=== PATIENT | male | born 1960 ===

== ENCOUNTER 2025-02-25 11:31 | Emergency (ER) | payer OTHER, SELFPAY ==
[2025-02-25] VITALS (9 sets, daily range): BP systolic 120; BP diastolic 78; PULSE 85–96; RESP 18; TEMP 37.2–38.1; O2SAT 92–98; BMI 33.1
--- NOTE | 2025-02-25 12:06 | ED_ITS ---
HPI - General Adult General Date Seen: 02/25/25 Chief complaint: Dizziness/Vertigo Stated complaint: Dizziness Time Seen by Provider: 02/25/25 11:54 History of Present Illness HPI narrative: Patient is a 64-year-old male who says he is generally pretty healthy but for the past several years has been having difficulties with somewhat abrupt onset weakness in his arms and legs and fatigue/mental fuzziness/sleepiness particularly when he works in the heat. He said he used to be able to manage it by taking frequent breaks but it seems to be getting worse to the point that he can not work in the heat at all. He has a doctor at [facility] and says that he has talked to his doctor about this it sounds like multiple times, he had an MRI recently but does not know what the results are and he has a stress test in the near future. He had a stress test for these symptoms a few years ago which was unremarkable. He came in today because he said he just wanted to get his lab work checked while he was more symptomatic. 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 No atypical symptoms today. No focal weakness, no chest pain. Related Data Home Medications ?Medication ?Instructions ?Recorded ?Confirmed acyclovir 400 mg tablet 400 mg PO DAILY PRN 02/25/25 02/25/25 hydroxurea 02/25/25 Allergies Allergy/AdvReac Type Severity Reaction Status Date / Time No Known Drug Allergies Allergy Verified 02/25/25 11:50 Review of Systems Status of ROS: Reports: 10 or more systems reviewed and unremarkable except as noted in History and below Exam Narrative: Exam Narrative: Vital signs reviewed In general, alert, nontoxic middle age male. Looks comfortable, breathing easily. Head: Normocephalic, atraumatic. Eyes: Sclera clear. Pupils equal and reactive. ENT: Mucous membranes moist. Neck: Supple without adenopathy. Heart: Regular rate and rhythm without murmur. Lungs: Clear. No increased work of breathing, crackles or wheezes. Abdomen: Soft, nontender to palpation. Extremities: Well perfused, pulses intact. No significant edema. Neurologic: Alert, conversant. Speech fluent, face symmetric. Moves all extremities equally. Strength is 5 of 5 in bilateral upper and lower extremities. Sensation intact to light touch. Skin: Warm, dry well perfused. Affect: Normal. Const: Vital Signs, click to edit/add: Vital Signs - 24 hr 02/25/25 11:41 02/25/25 12:42 02/25/25 12:45 Temperature 100.5 F H Pulse Rate 96 93 Pulse Rate [Right Pulse Oximeter] 96 Respiratory Rate 18 Blood Pressure [Ri ght Upper Arm] 120/78 Pulse Oximetry 95 94 92 Oxygen Delivery Me thod Room Air 02/25/25 13:00 02/25/25 13:15 02/25/25 13:30 Temperature Pulse Rate 87 85 86 Pulse Rate [Right Pulse Oximeter] Respiratory Rate Blood Pressure [Ri ght Upper Arm] Pulse Oximetry 95 95 93 Oxygen Delivery Me thod 02/25/25 13:40 02/25/25 13:45 02/25/25 14:00 Temperature 98.9 F Pulse Rate 87 88 Pulse Rate [Right Pulse Oximeter] Respiratory Rate Blood Pressure [Ri ght Upper Arm] Pulse Oximetry 98 94 Oxygen Delivery Me thod Course Course ED Course: I did check basic labs for him, and his white count is normal at 7, he is mildly anemic at just under 11. He does have an elevated platelet count, this is chronic for him and is the reason for his splenectomy. His electrolytes are all normal, his potassium is 4.3, magnesium is 1.9. LFTs are normal, TSH is normal and point of care troponin is 0. CK is normal. An EKG showed a normal sinus rhythm, ventricular rate of 83. No acute ischemic changes, unremarkable T- waves. No clear abnormalities to suggest a cause for his symptoms, as I dis cussed with him at the outset given that this is been ongoing for number of years I am on likely to determine a cause here in the ER, would encourage ongoing follow-up with primary care. Stressed the importance of scheduling the stress test that his primary doctor recommended. Anemia can be further evaluated if this is new. His temperature was 100.5? recorded when he came in but this normalized to 98.9 without intervention. Return any time for worsening, significant pain, fainting, or other new symptoms. Vital Signs Vital signs: Initial Vital Signs Temperature 100.5 F H 02/25/25 11:41 Temperature Source Temporal Artery Scan 02/25/25 11:41 Pulse Rate 96 02/25/25 11:41 Pulse Rhythm Regular 02/25/25 11:41 Pulse Strength 3+ Normal 02/25/25 11:41 Respiratory Rate 18 02/25/25 11:41 Blood Pressure 120/78 02/25/25 11:41 Blood Pressure Mean 92 02/25/25 11:41 Blood Pressure Position Sitting 02/25/25 11:41 Pulse Oximetry 95 02/25/25 11:41 Oxygen Delivery Method Room Air 02/25/25 11:41 Vital Signs Temperature 100.5 F H 02/25/25 11:41 Pulse Rate 96 02/25/25 11:41 Respiratory Rate 18 02/25/25 11:41 Blood Pressure 120/78 02/25/25 11:41 Pulse Oximetry 95 02/25/25 11:41 Oxygen Delivery Method Room Air 02/25/25 11:41 Temperature 98.9 F 02/25/25 13:40 Pulse Rate 88 02/25/25 14:00 Respiratory Rate 18 02/25/25 11:41 Blood Pressure 120/78 02/25/25 11:41 Pulse Oximetry 94 02/25/25 14:00 Oxygen Delivery Method Room Air 02/25/25 11:41 Medical Decision Making Lab Data Labs: Lab Results 02/25/25 02/25/25 Range/Units 12:03 12:22 WBC 7.08 (4.50-11.00) K/uL RBC 2.24 L (4.30-5.90) m/uL Hgb 10.8 L (13.5-17.5) gm/dL Hct 30.7 L (37.0-53.0) % MCV 137 H (80-100) fL MCH 48 H (26-34) pg MCHC 35 (32-36) gm/dL RDW Coeff of Orqu[place] 15.2 (11.5-15.5) % Plt Count 578 H (140-440) K/uL Neut % (Auto) 62.2 (42.0-72.0) % Lymph % (Auto) 27.7 (20-44) % Lassen % (Auto) 7.6 (0.0-11.0) % Eos % (Auto) 0.8 (0.0-7.0) % Baso % (Auto) 1.6 (0.0-3.0) % Neut # (Auto) 4.40 (1.7-7.0) K/uL Lymph # (Auto) 1.96 (0.90-2.90) K/uL Lassen # (Auto) 0.50 (0.00-0.90) K/UL Eos # (Auto) 0.06 (0.00-0.50) K/uL Baso # (Auto) 0.11 (0.00-0.30) K/uL Abs Immat Gran (auto) 0.01 (0.00-0.30) K/uL Imm/Tot Granulo (auto) 0.1 % Sodium 136 (135-149) mmol/L Potassium 4.3 (3.6-5.1) mmol/L Chloride 104 (96-114) mmol/L Carbon Dioxide 25 (20-32) mmol/L Anion Gap 7 (7-15) mEq/L BUN 28 (7-30) mg/dL Creatinine 1.1 (0.5-1.5) mg/dL Estimated Creat Clear 62.03 Estimated GFR 75 ml/min Glucose 99 (60-115) mg/dL Calcium 9.7 (8.4-10.6) mg/dL Magnesium 1.9 (1.5-2.6) mg/dL Total Bilirubin 0.5 (0.1-1.5) mg/dL AST 37 H (12-35) U/L ALT 33 (4-50) U/L Alkaline Phosphatase 46 (40-150) U/L Total Creatine Kinase 113 (54-186) U/L Total Protein 7.6 (6.0-8.3) g/dL Albumin 4.4 (3.3-5.0) g/dL TSH 0.952 (0.270-4.200) uIU/mL POC Troponin I 0.00 L (0.01-0.04) ng/ml Discharge Plan Discharge Clinical Impression: Episodic weakness Patient Disposition: Home, Self-Care Condition: Improved Additional Instructions: All of your lab test today are normal. Your temperature was slightly elevated at 100.5 when you came in and this is normalized to 98.9. No evidence of infection today, your electrolytes are normal, kidney function, liver function and thyroid function are all normal. I would recommend that you continue to work with your doctor at [place] on these symptoms, do be sure to make sure to schedule the stress test that your primary doctor recommended as well. Return to the ER if you have focal weakness, fainting, severe chest pain or other worsening symptoms. Prescriptions: No Action hydroxurea acyclovir 400 mg tablet 400 mg PO DAILY PRN Follow Up/Referrals: Provider,Not a Local [Primary Care Provider, Family Practice] Stand Alone Forms: [email or web address] Info Instructions
[2025-02-25 12:25] LABS: Hematocrit 30.7 % (37.0-53.0); Hemoglobin* 10.8 gm/dL (13.5-17.5); Immature Granulocytes Abs Auto 0.01 K/uL (0.00-0.30); Immature Granulocytes Pct Auto 0.1 %; Lymphocytes Absolute Auto 1.96 K/uL (0.90-2.90); Mean Corpuscular HGB Conc 35 gm/dL (32-36); Mean Corpuscular Hemoglobin 48 pg (26-34); Mean Corpuscular Volume 137 fL (80-100); RDW Coefficient of Variation % 15.2 % (11.5-15.5); Red Blood Count 2.24 m/uL (4.30-5.90); White Blood Count* 7.08 K/uL (4.50-11.00)
[2025-02-25 12:26] LABS: Slide Review Reflex No
[2025-02-25 12:38] LABS: Albumin* 4.4 g/dL (3.3-5.0); Chloride* 104 mmol/L (96-114)
[2025-02-25 12:39] LABS: Potassium* 4.3 mmol/L (3.6-5.1); Sodium* 136 mmol/L (135-149)
[2025-02-25 12:41] LABS: Alanine Aminotransferase* 33 U/L (4-50); Anion Gap 7 mEq/L (7-15); Aspartate Amino Transferase* 37 U/L (12-35); Blood Urea Nitrogen* 28 mg/dL (7-30); Carbon Dioxide* 25 mmol/L (20-32); Creatinine* 1.1 mg/dL (0.5-1.5); Est. Creatinine Clearance* 62.03; Estimated Glomerular Filt Rate 75 ml/min
[2025-02-25 12:42] LABS: Alkaline Phosphatase* 46 U/L (40-150); Bilirubin Total* 0.5 mg/dL (0.1-1.5); Calcium* 9.7 mg/dL (8.4-10.6); Creatine Kinase* 113 U/L (54-186); Glucose* 99 mg/dL (60-115); Total Protein* 7.6 g/dL (6.0-8.3)
[2025-02-25 12:44] LABS: Troponin, Point-of-Care* 0.00 ng/ml (0.01-0.04)
[2025-02-25 13:24] LABS: TSH With Reflex to FT4* 0.952 uIU/mL (0.270-4.200)
== END 2025-02-25 14:10 | disposition home or self-care (01) ==
PROVIDERS: Emergency Provider Emergency Medicine
DX: R42 Dizziness and giddiness (principal); R53.1 Weakness
CPT/HCPCS: 36415; 80053; 82550; 83735; 84443; 84484; 85025; 93005; 94761; 99284